=== PATIENT | male | born 1990 | race Two or more races ===

== ENCOUNTER 2017-03-13 22:15 | Observation (INO) | payer SELFPAY ==
[2017-03-13] MEDS ORDERED: Sodium Chloride 0.9% 1,000 ML IV STA (22:36)
[2017-03-13 22:47] LABS: BASO # 0.2 K/uL (0.0-0.2); BASO % 1.1 % (0.0-2.0); EOS # 0.6 K/uL (0.0-0.7); EOS % 3.5 % (0.0-4.0); HEMATOCRIT 43.9 % (35.0-51.0); LYMPH # 4.1 K/uL (1.0-4.3); MEAN CELL VOLUME 88.7 fl (80.0-94.0); MEAN CORPUSCULAR HEMOGLOBIN 29.7 pg (27.0-31.0); MEAN CORPUSCULAR HGB CONC 33.5 g/dL (33.0-37.0); MEAN PLATELET VOLUME 7.3 fl (7.2-11.7); MONO # 0.8 K/uL (0.0-0.8); MONO % 4.5 % (0.0-10.0); NEUT # 12.2 K/uL (1.8-7.0); NEUT % 67.9 % (50.0-75.0); RED CELL DISTRIBUTION WIDTH 13.1 % (11.5-14.5); WHITE BLOOD COUNT 17.9 K/uL (4.8-10.8)
[2017-03-13 23:02] LABS: ALB/GLOB RATIO 1.5 (1.0-2.1); ALCOHOL SERUM < 10 mg/dl (0-10); ALKALINE PHOSPHATASE 98 U/L (38-126); ALT/SGPT 38 U/L (21-72); AST/SGOT 49 U/L (17-59); BILIRUBIN,TOTAL 0.6 mg/dl (0.2-1.3); BLOOD UREA NITROGEN 13 mg/dl (9-20); CALCIUM 9.2 mg/dL (8.4-10.2); CARBON DIOXIDE 17 mmol/L (22-30); CHLORIDE 97 mmol/L (98-107); GFR AFRICAN-AMERICAN > 60; GLUCOSE,RANDOM 226 mg/dL (75-110); POTASSIUM 3.1 MMOL/L (3.6-5.0); SODIUM 139 mmol/l (132-148); TOTAL PROTEIN 7.1 G/DL (6.3-8.2)
--- NOTE | 2017-03-13 23:18 | ED PDOC ---
HPI: Psych/Substance Abuse Time Seen by Provider: 03/13/17 22:18 Chief Complaint (Nursing): Substance Abuse Chief Complaint (Provider): Agitation ED Caveat: Acuity of Condition History Per: EMS History/Exam Limitations: clinical condition Onset/Duration Of Symptoms: Mins (prior to arrival) Current Symptoms Are (Timing): Gone Now (patient is sedated.) Severity: Moderate Associated Symptoms: Agitation, Paranoia Additional Complaint(s): 35 year old unidentified male with unknown medical history is brought into the ED by EMS for an evaluation of acute agitation. EMS states that the patient was extremely agitated and incoherent at the time when they found him. He was making paranoid statements such as "they are coming to get me", as per EMS. Patient was possibly in possession of drug paraphernalia, and 6 police officers were necessary to restrain him. The patient was sedated prior to arrival with 4mg IM of Versed (2x doses) for a total of 8mg IM of Versed. At the moment, the patient is sedated and unable to provide any information. Patient has an abrasion on his right hand. No other injuries noted. PMD: unable to obtain. Past Medical History Reviewed: Unable To Obtain Vital Signs: Last Vital Signs Temp 99.9 F H 03/13/17 22:24 Pulse 89 03/13/17 22:24 Resp 22 03/13/17 22:24 BP 110/60 03/13/17 22:24 Pulse Ox 96 03/13/17 22:24 - Family History Family History: States: No Known Family Hx - Allergies Allergies/Adverse Reactions: Allergies Allergy/AdvReac Type Severity Reaction Status Date / Time Unobtainable Allergy Verified 03/13/17 22:29 Review of Systems Review Of Systems: ROS cannot be obtained secondary to pt's inabilty to answer questions. (due to clinical condition) Physical Exam - Reviewed Nursing Documentation Reviewed: Yes Vital Signs Reviewed: Yes - Physical Exam Appears: Positive for: Well, Non-toxic, No Acute Distress Head Exam: Positive for: ATRAUMATIC, NORMOCEPHALIC Skin: Positive for: Normal Color, Warm, Dry Eye Exam: Positive for: PERRL. Negative for: Normal appearance (pupils are dilated 6mm bilaterally) Neck: Positive for: Normal Cardiovascular/Chest: Positive for: Regular Rate, Rhythm Respiratory: Positive for: Normal Breath Sounds. Negative for: Respiratory Distress Extremity: Positive for: Normal ROM, Other (abrasion to the right metacarpal surface of hand.) Neurologic/Psych: Positive for: Alert - Laboratory Results Result Diagrams: 03/13/17 22:40 03/13/17 22:40 - ECG ECG: Positive for: Interpreted By Me, Viewed By Me ECG Rhythm: Positive for: Sinus Tachycardia (rate of 143 beats per minute). Negative for: ST/T Changes O2 Sat by Pulse Oximetry: 96 (RA) Pulse Ox Interpretation: Normal - CT Scan/US CT head w/o IV contrast Other Rad Studies (CT/US): Read By Radiologist, Radiology Report Reviewed (See MDM sections for findings) - Critical Care Total Time (In Min): 30 Medical Decision Making Medical Decision Makin:18 Initial impression: 35 year old male with acute agitation insetting of possible substance abuse. Initial plan: * CT head * XRay hand right 2 views * EKG * acetaminophen * alcohol serum * CMP * drug screen, urinary * salicylate * udip * CBC * adacel .5ml IM * IV NS 1,000ml IV 1,000mls/hr * accucheck * urinalysis * 4 point locked restraint * 1:1 observation * reevaluation 22:30 Patient's EKG is read and reviewed by provider. - Sinus tachycardia at 143 beats per minute. - No ST/T wave changes 23:08 Patient is being placed in ED observation pending multiple reevaluations. See ED observation note for further updates. 7:00 Patient is signed out by me to Abhishek Heredia MD pending sobriety, reevaluation , and final disposition. Scribe Attestation: Documented by Saige Em, acting as a scribe for Dwight Aguilar MD. Provider Scribe Attestation: All medical record entries made by the Scribe were at my direction and personally dictated by me. I have reviewed the chart and agree that the record accurately reflects my personal performance of the history, physical exam, medical decision making, and the department course for this patient. I have also personally directed, reviewed, and agree with the discharge instructions and disposition. ED OBSERVATION Date of observation admission: 03/13/17 Time of observation admission: 23:08 - Observation admission statement Patient is being placed in observation because:: Pending multiple reevaluations to determine stability for disposition. - Goals of Observation Goals of observation are:: Resolution of symptoms. - Progress Note Progress Note: 03/13/17 23:08 Patient is sleeping comfortably, vitals are stable. 03/14/17 00:04 Patient is sleeping comfortably, vitals are stable. CT head is read and reviewed by radiologist. FINDINGS: Brain: Unremarkable. No hemorrhage. No significant white matter disease. No edema. Ventricles: Unremarkable. No ventriculomegaly. Bones/joints: Age indeterminate nasal tip fracture not excluded. Soft tissues: Unremarkable. Sinuses: Unremarkable as visualized. No acute sinusitis. Mastoid air cells: Unremarkable as visualized. No mastoid effusion. IMPRESSION: No acute findings. No hemorrage, mass effect or subacute territorial infarction CT can miss an acute nonhemorrhagic CVA. Acute strokes may be initially radiologically occult on CT. If the patient is having persistent stroke like symptomatology, then MRI may be beneficial 03/14/17 01:34 Patient is sleeping comfortably, vitals are stable. 03/14/17 03:00 Patient is sleeping comfortably, vitals are stable. 03/14/17 04:27 Patient is sleeping comfortably, vitals are stable. 03/14/17 05:27 Patient is sleeping comfortably, vitals are stable. 03/14/17 07:00 Patient is resting comfortably, vitals are stable. Disposition - Clinical Impression Clinical Impression: Polysubstance abuse - Patient ED Disposition Is Patient to be Admitted: Transfer of Care - Disposition Disposition: Transfer of Care Disposition Time: 23:00 Condition: FAIR Patient Signed Over To: Abhishek Heredia
[2017-03-13 23:57] LABS: GRANULAR CAST 2 /lpf (0-1); RBC URINE 5 /hpf (0-3); URINE BACTERIA FEW (<OCC); URINE BILIRUBIN NEGATIVE (NEGATIVE); URINE BLOOD MODERATE (NEGATIVE); URINE COLOR YELLOW (YELLOW); URINE GLUCOSE (UA) 50 mg/dL (Normal); URINE KETONE NEGATIVE (NEGATIVE); URINE LEUKOCYTE ESTERASE NEG Leu/uL (Negative); URINE PROTEIN >=500 mg/dL (NEGATIVE); URINE UROBILINOGEN 0.2-1.0 mg/dL (0.2-1.0); WBC URINE 10 /hpf (0-5)
[2017-03-14] MEDS ORDERED: Sodium Chloride 0.9% 1,000 ML IV STA (02:22)
[2017-03-14 06:10] VITALS: TEMP 98.7
--- NOTE | 2017-03-14 06:20 | ED PDOC ---
- Laboratory Results Result Diagrams: 03/13/17 22:40 03/13/17 22:40 - ECG O2 Sat by Pulse Oximetry: 96 (RA) - Progress Re-evaluation Time: 11:00 Condition: Improved (Awake alert no focal neuro defiicts) Medical Decision Making Medical Decision Makin:00 Patient is signed out to me by Dwight Aguilar MD pending sobriety, reevaluation, and final disposition. Scribe Attestation: Documented by Saige Em, acting as a scribe for Abhishek Heredia MD. Provider Scribe Attestation: All medical record entries made by the Scribe were at my direction and personally dictated by me. I have reviewed the chart and agree that the record accurately reflects my personal performance of the history, physical exam, medical decision making, and the department course for this patient. I have also personally directed, reviewed, and agree with the discharge instructions and disposition. Disposition - Clinical Impression Clinical Impression: Polysubstance abuse - POA Present On Arrival: None - Disposition Disposition: Routine/Home Disposition Time: 11:01 Condition: FAIR
[2017-03-14 07:47] VITALS: RESP 16
--- NOTE | 2017-03-14 08:35 | CT ---
PROCEDURE: CT HEAD WITHOUT CONTRAST. HISTORY: Altered mental status COMPARISON: None available. TECHNIQUE: Axial computed tomography images were obtained through the head/brain without intravenous contrast. Radiation dose: Total exam DLP = 1382.72 mGy-cm. This CT exam was performed using one or more of the following dose reduction techniques: Automated exposure control, adjustment of the mA and/or kV according to patient size, and/or use of iterative reconstruction technique. FINDINGS: HEMORRHAGE: No intracranial hemorrhage. BRAIN: Bhatia-white matter differentiation is preserved. There is no mass, mass effect or abnormal extra-axial fluid collection. VENTRICLES: The ventricles are normal in size, shape and configuration. CALVARIUM: The skull base and calvarium are normal. PARANASAL SINUSES: There is mild mucosal thickening in the right anterior ethmoid air cells and a retention cyst/ polyp in the left maxillary sinus. MASTOID AIR CELLS: Predominantly clear. OTHER FINDINGS: None. IMPRESSION: No acute intracranial abnormality. A preliminary report was provided by [employer] services.
--- NOTE | 2017-03-14 09:17 | RAD ---
PROCEDURE: Right Hand Radiographs. HISTORY: Injury COMPARISON: None. FINDINGS: BONES: Bone alignment and mineralization are normal. There is no acute fracture or bone destruction. JOINTS: Normal. No osteoarthritic changes. SOFT TISSUES: Normal. OTHER FINDINGS: None. IMPRESSION: No acute fracture or dislocation.
[2017-03-14 10:58] VITALS: BP 113/68; PULSE 60
[2017-03-14 11:01] VITALS: O2SAT 96
--- NOTE | 2017-03-15 11:04 | CARD ---
APPROVED REPORT EKG Measurement Heart [id number] <Conclusion> Sinus tachycardia Left axis deviation Abnormal ECG
== END 2017-03-14 11:30 | disposition home or self-care (01) ==
LOC: H.ER 22:15 → H.EROBSV 23:08 → EDBD 23:08
PROVIDERS: ADMIT Emergency Medicine; ATTEND Emergency Medicine
DX: F19.10 Other psychoactive substance abuse, uncomplicated (principal); S60.511A Abrasion of right hand, initial encounter; X58.XXXA Exposure to other specified factors, initial encounter; Y93.9 Activity, unspecified; Y92.9 Unspecified place or not applicable; Z23 Encounter for immunization
CPT/HCPCS: 70450; 73130; 80053; 81003; 82550; 82948; 85025; 90471; 90715; 93005; 99285; G0378; G0480; J7040